=== PATIENT | male | born 1980 | race Caucasian/White ===

== ENCOUNTER → 2016-12-09 13:24 | Emergency (ER) | payer OTHER ==
[~2016-12-09 13:24] MED LIST: FLEXERIL10 MG PO; MEDROL DOSEPAK4 MG PO; MOBIC PO; ORUDIS75 M1 PO; VICODIN 5/500 T1 TAB PO
== END | disposition left against medical advice (07) ==
LOC: CED 13:24
DX: Z53.21 Procedure and treatment not carried out due to patient leaving prior to being seen by health care provider (principal)